=== PATIENT | female | born 1930 | race African-American/Black ===

== ENCOUNTER → 2017-02-02 | Outpatient (CLI) | payer MEDICARE, OTHER ==
[2016-04-26 10:44] VITALS: BP 126/81
[~2017-02-02] MED LIST: ARFO15VI NEB; ARIP2TAB8 PO; BECL8.7H NS; BUDE10.2 IH; CALC400T5 PO; CYCL-331 PO; HYDR-2758 PO; HYDR-2762 PO; LEVO500T59 PO; LORA10TA68 PO; MEGE400O PO; METO50TA10 PO; MIRT15TA3 PO; MONT10TA9 PO; PARO30TA45 PO; PARO40TA3 PO; PROM118S2 PO; SERT100T PO; XOPENEX0.63 MG/3 NEB
--- NOTE | 2017-02-02 11:09 | RAD ---
Examination: Ultrasound right lower extremity venous duplex History: History of right leg pain, swelling Comparison: None available Technique: Grayscale, color Doppler 2-D, spectral waveform analysis of the right lower extremity venous system were performed Findings: The visualized common femoral vein, superficial femoral vein , popliteal vein demonstrate normal compression and augmentation of flow. The visualized calf veins are patent. Impression: No evidence of deep venous thrombosis identified in the right lower extremity venous system.
== END | disposition home or self-care (01) ==
LOC: US 10:18
PROVIDERS: ATTEND Family Medicine
DX: M79.604 Pain in right leg (principal); I82.441 Acute embolism and thrombosis of right tibial vein; M79.89 Other specified soft tissue disorders
CPT/HCPCS: 93971

== ENCOUNTER → 2017-02-03 | Outpatient (CLI) | payer MEDICARE, OTHER ==
[2016-04-26 10:44] VITALS: BP 126/81
[~2017-02-03] MED LIST changes: +IOHEXOL 300 MG/ML 75 ML VIAL. IV ONE
--- NOTE | 2017-02-03 11:22 | RAD ---
Examination: CT angiogram of the chest. History: History of edema Comparison: 04/23/2016 Technique: Axial CT angiographic images were performed with IV contrast with coronal and sagittal 3-D MIP reformats are performed. PQRS Compliance Statement: One or more of the following individualized dose reduction techniques were utilized for this examination: 1. Automated exposure control 2. Adjustment of the mA and/or kV according to patient size 3. Use of iterative reconstruction technique Findings: The visualized thyroid gland grossly appears unremarkable. The central airways are patent. Mild aortic atherosclerosis identified. The ascending aorta measures 3.8 cm in transverse dimension and 3.8 cm in AP dimension. Mild cardiomegaly. No evidence of filling defect identified in the main pulmonary artery trunk and right and left main pulmonary arteries and the visualized lobar, segmental branches of the pulmonary arteries. Mild coronary artery calcifications. Faint patchy airspace opacities identified in the right upper lobe, left lingula and bibasal lungs. Mild bronchiectasis identified in the bibasal lungs. No evidence of pleural effusion or pneumothorax identified. The visualized liver, spleen grossly appears unremarkable. Impression: 1. No evidence of pulmonary embolism. 2. Mild bronchiectatic changes bibasal lungs with the bibasal, right upper lobe and left lingular airspace opacities likely atelectasis or infiltrates. 3. Mild cardiomegaly. Mild coronary artery calcifications.
== END | disposition home or self-care (01) ==
LOC: CT 09:31
PROVIDERS: ATTEND Family Medicine
DX: I25.10 Atherosclerotic heart disease of native coronary artery without angina pectoris (principal); J47.9 Bronchiectasis, uncomplicated; R91.8 Other nonspecific abnormal finding of lung field; R60.0 Localized edema; R79.9 Abnormal finding of blood chemistry, unspecified
CPT/HCPCS: 71275; Q9967

== ENCOUNTER → 2019-11-09 | Outpatient (CLI) | payer MEDICARE, OTHER ==
[2016-04-26 10:44] VITALS: BP 126/81
[~2019-11-09] MED LIST changes: +ARIP2TAB17 PO; -ARIP2TAB8 PO; +HYDR-2155 PO; -HYDR-2758 PO; -HYDR-2762 PO; +HYDR-2765 PO; -IOHEXOL 300 MG/ML 75 ML VIAL. IV ONE; -METO50TA10 PO; +METO50TA29 PO; +MONT10TA80 PO; -MONT10TA9 PO; -PROM118S2 PO; +PROM118S5 PO
[2019-11-09 16:04] LABS: BASO % 1 % (0-3); EOS # 0.2 x10^3/uL (0.0-0.7); EOS % 3 % (0-3); HEMOGLOBIN 13.5 g/dL (12.0-15.5); LYMPH # 1.9 x10^3/uL (1.0-4.8); LYMPH % 28 % (24-48); MEAN CORPUSCULAR HEMOGLOBIN 29 pg (25-35); MEAN CORPUSCULAR HGB CONC 31 g/dL (31-37); MEAN CORPUSCULAR VOLUME 92 fL (79-100); MONO # 0.6 x10^3/uL (0.0-1.1); MONO % 9 % (0-9); NEUT % 59 % (31-73); PLATELET COUNT 253 x10^3/uL (140-400); RED BLOOD COUNT 4.68 x10^6/uL (3.50-5.40); RED CELL DISTRIBUTION WIDTH 16.1 % (11.5-14.5); WHITE BLOOD COUNT 6.8 x10^3/uL (4.0-11.0)
[2019-11-09 16:26] LABS: CALCIUM 9.3 mg/dL (8.5-10.1); CREATININE 0.9 mg/dL (0.6-1.0); GFR 71.7
--- NOTE | 2019-11-09 19:22 | RAD ---
CHEST PA LATERAL History: CHF, edema, chest pain Comparison: 02/03/2017 CT of the chest, 04/22/2016 Portable Chest X-ray Exam. Findings: Frontal and lateral views of the chest were obtained. The cardiomediastinal silhouette is normal. Pulmonary vasculature is normal. The lungs are clear. Tortuosity of thoracic aorta noted. No pleural effusion or pneumothorax is seen. There is no acute bone abnormality. Old left rib fractures at the lower thorax are present. Left seventh rib fracture laterally is present with displacement. This is not seen on the prior exam. IMPRESSION: No infiltrate. Displaced left seventh rib fracture of indeterminate age. Other fractures are old in appearance. Electronically signed by: Jose Taveras MD (11/09/2019 7:19 PM) [id number]
== END | disposition home or self-care (01) ==
LOC: LAB 14:52
PROVIDERS: ATTEND Family Medicine
DX: S22.32XA Fracture of one rib, left side, initial encounter for closed fracture (principal); I50.21 Acute systolic (congestive) heart failure; N18.3 Chronic kidney disease, stage 3 (moderate); X58.XXXA Exposure to other specified factors, initial encounter; Y93.89 Activity, other specified; Y92.89 Other specified places as the place of occurrence of the external cause; Y99.8 Other external cause status
CPT/HCPCS: 36415; 71046; 80048; 82550; 83880; 85025

== ENCOUNTER 2021-09-22 15:11 | Inpatient (IN) | payer MEDICARE, OTHER ==
[~2021-09-22] VITALS: Ht 152.4 cm; Wt 55.9 kg
[~2021-09-22 15:11] MED LIST changes: -CYCL-331 PO; +CYCL10TA19 PO; +MIRT-7 PO; -MIRT15TA3 PO
[2021-09-22] MEDS ORDERED: IV NORMAL SALINE 1,000ML 1,000 ML IV ONE (16:00)
--- NOTE | 2021-09-22 16:22 | RAD ---
XR CHEST 1V History: Reason: SOB, cough / Spl. Instructions: / History: Comparison: November 09, 2019 Findings: Patchy mid and bibasilar opacities. No pleural effusion. No pneumothorax. Unchanged heart size. Chron ic left-sided rib fracture. Impression: 1. Mild patchy mid and bibasilar opacities, may represent atelectasis or pneumonia. Recommend follow -up to ensure resolution. Electronically signed by: Galileo Mejia DO (09/22/2021 4:20 PM) [facility]
--- NOTE | 2021-09-22 16:28 | PHYS DOC ---
Past History Past Medical History: Arthritis, CAD, COPD Additional Past Medical Histor: ENLARGED HEART (JOSE BUSH) Past Surgical History: Appendectomy, Hysterectomy (JOSE BUSH) Alcohol Use: Rarely Drug Use: None (JOSE BUSH) General Adult EDM: Chief Complaint: SHORTNESS OF BREATH HPI: HPI: Patient is a 89-year-old female with history of COPD, CAD and "enlarged heart" who presents with 2-day history of shortness of breath. Patient reports she became short of breath yesterday, but is more severe today. She also reports associated "medium" amount of sputum production when she coughs and nasal congestion. Patient denies fever, chills, sore throat, chest pain, palpitations. (JOSE BUSH) Review of Systems: Review of Systems: Constitutional: See HPI Eyes: Denies change in visual acuity or visual field deficits HENT: See HPI Respiratory: See HPI Cardiovascular: See HPI GI: Denies abdominal pain, nausea, vomiting, bloody stools or diarrhea : Denies dysuria or hematuria Musculoskeletal: Denies back pain or joint pain Integument: Denies rash or other skin lesions Neurologic: Denies headache, focal weakness or sensory changes (JOSE BUSH) Current Medications: Current Meds: Current Medications Medications (Trade) Dose Ordered Sig/Izabel Start Time Stop Time Status Last Admin Dose Admin Sodium Chloride 1,000 ml @ 1,000 mls/hr 1X ONCE 09/22/21 16:00 09/22/21 16:59 (JOSE BUSH) Allergies: Allergies: Allergies Coded Allergies Type Severity Reaction Last Updated Verified Penicillins Allergy Intermediate 09/22/21 Yes Sulfa (Sulfonamide Antibiotics) Allergy Intermediate 09/22/21 Yes (JOSE BUSH) Physical Exam: PE: Constitutional: Well developed, well nourished, no acute distress, non-toxic appearance. HENT: Normocephalic, atraumatic, bilateral external ears without deformity or discharge, oropharynx moist, no oral exudates, nose without deformity or discharge. Eyes: PERRLA, EOMI, conjunctiva normal, no discharge. Neck: Normal range of motion, no tenderness, supple, no stridor. Cardiovascular: Heart rate regular rhythm, no obvious murmur. Lungs & Thorax: Bilateral breath sounds clear to auscultation but diminished. Abdomen: Bowel sounds normal, soft, no tenderness, no masses, no pulsatile masses. Skin: Warm, dry, no erythema, no rash. (JOSE BUSH) Current Patient Data: Labs: Laboratory Tests Test 09/22/21 16:50 White Blood Count 9.6 x10^3/uL (4.0-11.0) Red Blood Count 4.50 x10^6/uL (3.50-5.40) Hemoglobin 12.9 g/dL (12.0-15.5) Hematocrit 40.1 % (36.0-47.0) Mean Corpuscular Volume 89 fL (79-100) Mean Corpuscular Hemoglobin 29 pg (25-35) Mean Corpuscular Hemoglobin Concent 32 g/dL (31-37) Red Cell Distribution Width 14.9 % (11.5-14.5) Platelet Count 170 x10^3/uL (140-400) Neutrophils (%) (Auto) 71 % (31-73) Lymphocytes (%) (Auto) 16 % (24-48) Monocytes (%) (Auto) 11 % (0-9) Eosinophils (%) (Auto) 3 % (0-3) Basophils (%) (Auto) 1 % (0-3) Neutrophils # (Auto) 6.8 x10^3uL (1.8-7.7) Lymphocytes # (Auto) 1.5 x10^3/uL (1.0-4.8) Monocytes # (Auto) 1.0 x10^3/uL (0.0-1.1) Eosinophils # (Auto) 0.2 x10^3/uL (0.0-0.7) Basophils # (Auto) 0.0 x10^3/uL (0.0-0.2) Sodium Level 139 mmol/L (136-145) Potassium Level 4.2 mmol/L (3.5-5.1) Chloride Level 100 mmol/L (98-107) Carbon Dioxide Level 29 mmol/L (21-32) Anion Gap 10 (6-14) Blood Urea Nitrogen 10 mg/dL (7-20) Creatinine 1.0 mg/dL (0.6-1.0) Estimated GFR (Cockcroft-Gault) 63.2 BUN/Creatinine Ratio 10 (6-20) Glucose Level 83 mg/dL (70-99) Calcium Level 9.6 mg/dL (8.5-10.1) Total Bilirubin 0.8 mg/dL (0.2-1.0) Aspartate Amino Transf (AST/SGOT) 50 U/L (15-37) Alanine Aminotransferase (ALT/SGPT) 30 U/L (14-59) Alkaline Phosphatase 64 U/L (46-116) Troponin I High Sensitivity 6 ng/L (4-50) VO-Yxb-H-Type Natriuretic Peptide 134 pg/mL (0-449) Total Protein 9.1 g/dL (6.4-8.2) Albumin 3.8 g/dL (3.4-5.0) Albumin/Globulin Ratio 0.7 (1.0-1.7) Influenza Type A (Rapid) Negative (NEGATIVE) Influenza Type B (Rapid) Negative (NEGATIVE) Vital Signs: Vital Signs Date Time Temp Pulse Resp B/P (MAP) Pulse Ox O2 Delivery O2 Flow Rate FiO2 09/22/21 15:32 97 28 100 Nasal Cannula 2.0 09/22/21 15:19 97.9 127/81 (96) (JSOE BUSH) EKG: EKG: EKG Interpreted by Dr. Mccrary at 1640: Regular rate and rhythm 83 bpm with no ectopic beats. QT 386 ms/QTc 483 ms. No STEMI. (JOSE BUSH) Radiology/Procedures: Radiology/Procedures: PROCEDURE: PORTABLE CHEST 1V XR CHEST 1V History: Reason: SOB, cough / Spl. Instructions: / History: Comparison: November 09, 2019 Findings: Patchy mid and bibasilar opacities. No pleural effusion. No pneumothorax. Unchanged heart size. Chronic left-sided rib fracture. Impression: 1. Mild patchy mid and bibasilar opacities, may represent atelectasis or pneumonia. Recommend follow-up to ensure resolution. Electronically signed by: Galileo Mejia DO (09/22/2021 4:20 PM) [facility] ([facility]) Heart Score: C/O Chest Pain: No (JOSE BUSH) Course & Med Decision Making: Course & Med Decision Making Pertinent Labs and Imaging studies reviewed. (See chart for details) Patient is an 89-year-old female with history of COPD, coronary artery disease a nd enlarged heart who presents with shortness of breath onset yesterday. Patient states is gotten worse today. Work-up today will include labs, chest x- ray, EKG, urinalysis, swabs for influenza a & B as well as COVID-19. Work-up today is largely unremarkable, however patient is still under investigation for COVID-19 infection. Patient gladly accepted by Dr. Sellers for admission due to acute hypoxia with history of COPD and evidence of atelectasis versus pneumonia on chest x-ray. (JOSE BUSH) Dragon Disclaimer: Dragon Disclaimer: This electronic medical record was generated, in whole or in part, using a voice recognition dictation system. (JOSE BUSH) Attending Co-Sign The patient was seen and interviewed as well as examined at the bedside. The chart was reviewed. The case was discussed. Agree with the plan of care. (MARLIN CARMICHAEL DO) Departure Departure: Impression: Primary Impression: COPD with hypoxia Additional Impression: Respiratory failure with hypoxia Qualified Codes: J96.01 - Acute respiratory failure with hypoxia Disposition: ADMITTED INPATIENT Admitting Physician: Rodri Mina (JSOE BUSH) Condition: GUARDED Referrals: RODRI MINA MD (PCP) JOSE BUSH Sep 22, 2021 16:28 MARLIN CARMICHAEL DO Sep 23, 2021 14:41
--- NOTE | 2021-09-22 16:53 | EKG ---
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
[2021-09-22 17:32] LABS: BASO % 1 % (0-3); EOS # 0.2 x10^3/uL (0.0-0.7); EOS % 3 % (0-3); HEMATOCRIT 40.1 % (36.0-47.0); HEMOGLOBIN 12.9 g/dL (12.0-15.5); LYMPH # 1.5 x10^3/uL (1.0-4.8); LYMPH % 16 % (24-48); MEAN CORPUSCULAR HEMOGLOBIN 29 pg (25-35); MEAN CORPUSCULAR HGB CONC 32 g/dL (31-37); MEAN CORPUSCULAR VOLUME 89 fL (79-100); MONO % 11 % (0-9); NEUT # 6.8 x10^3uL (1.8-7.7); NEUT % 71 % (31-73); PLATELET COUNT 170 x10^3/uL (140-400); RED CELL DISTRIBUTION WIDTH 14.9 % (11.5-14.5); WHITE BLOOD COUNT 9.6 x10^3/uL (4.0-11.0)
[2021-09-22 17:38] LABS: CALCIUM 9.6 mg/dL (8.5-10.1); GFR 63.2; POTASSIUM 4.2 mmol/L (3.5-5.1)
[2021-09-22 17:44] LABS: ALBUMIN 3.8 g/dL (3.4-5.0); ALBUMIN/GLOBULIN RATIO 0.7 (1.0-1.7); TOTAL BILIRUBIN 0.8 mg/dL (0.2-1.0); TOTAL PROTEIN 9.1 g/dL (6.4-8.2)
[2021-09-22 18:06] LABS: INFLUENZA A PATIENT NEGATIVE (NEGATIVE); INFLUENZA B PATIENT NEGATIVE (NEGATIVE)
[2021-09-22 18:35] LABS: BACTERIA,URINE MANY /HPF (0-FEW); BILIRUBIN,URINE NEG (NEG); CLARITY,URINE HAZY; COLOR,URINE YELLOW; GLUCOSE,URINE NEG (NEG); NITRITE,URINE POS (NEG); RBC,URINE 0 /HPF (0-2); SQUAMOUS EPITHELIAL CELL,UR MOD /LPF; UROBILINOGEN,URINE 0.2 mg/dL (0.2 mg/dL)
[2021-09-22 23:15] VITALS: BP 119/75
[2021-09-22] MEDS ORDERED: HYDROcodone/APAP 7.5/325MG 1 TAB TABLET PO PRN (23:15)
[2021-09-22] MEDS ORDERED: CYCLOBENZAPRINE 10 MG TABLET. PO PRN (23:15)
[2021-09-22] MEDS ORDERED: CALCIUM CARBONATE 500 MG TAB.CHEW PO PRN (23:30)
[2021-09-22] MEDS ORDERED: ALBUTEROL SULFATE 2.5 MG/3 ML NEBU. NEB PRN (23:30)
[2021-09-23 06:06] VITALS: BP 100/63
[2021-09-23] MEDS ORDERED: ALBUTEROL SULFATE 2.5 MG/3 ML NEBU. NEB SCH (08:00)
[2021-09-23] MEDS ORDERED: levoFLOXacin 500 MG TABLET PO SCH (09:00)
[2021-09-23] MEDS: METOPROLOL SUCC 24HR ER 50 MG TAB.ER.24H. PO SCH (09:00)
[2021-09-23] MEDS: FLUTICASONE 50MCG/NASAL SPRAY 16GM BOTTLE. NS SCH (09:00)
[2021-09-23] MEDS: ARIPiprazole 2 MG TABLET PO SCH (09:00)
[2021-09-23] MEDS: BUDESONIDE 0.5 MG/2 ML NEBU NEB SCH ×2 (09:04→20:37)
[2021-09-23] MEDS: MONTELUKAST 10 MG TABLET. PO SCH (09:26)
[2021-09-23] MEDS: PARoxetine 20 MG TABLET PO SCH (09:27)
[2021-09-23 11:39] VITALS: BP 101/68
--- NOTE | 2021-09-23 12:30 | NUR ---
PT MORNING DOSE OF METOPROLOL HELD D/T PT BP BEING LOW.
[2021-09-23] MEDS: IPRATRPIUM/ALBUTEROL 0.5/2.5MG 3 ML NEBU. NEB SCH ×3 (12:38→20:37)
[2021-09-23] MEDS: ENOXAPARIN 30 MG/0.3 ML SYRINGE. SQ SCH (12:38)
[2021-09-23] MEDS: methylPREDNISolone SOD SUCC PF 40 MG/ML VIAL. IV SCH ×2 (13:07→21:47)
--- NOTE | 2021-09-23 13:12 | HP ---
DATE OF SERVICE: 09/23/2021 ADMIT DATE: 09/22/2021 HISTORY OF PRESENT ILLNESS: This is an 89-year-old female for last 2-3 days has become increasingly short of breath and wheezing. The patient notes that she became increasingly more severe and her oxygen saturation dropped down in the 70 percentile range. The patient otherwise denied chest pain, abdominal pain, nausea, vomiting and so forth. However, the patient was admitted because of acute exacerbation of her respiratory difficulties along with possible pneumonic process precipitating the whole series of events. PAST MEDICAL HISTORY: That of tonsillectomy, adenoidectomy, CHF, CAD, COPD, pulmonary fibrosis, reproductive disorders, hysterectomy, urinary tract infections, incontinence, arthritis, osteoporosis, thrombocytopenia, lymphocytosis and the patient has immunization to pneumococcal tetanus and COVID. ALLERGIES: PENICILLIN AND SULFUR. SOCIAL HISTORY: Denies smoking, alcohol or drug use and is a DNR. REVIEW OF SYSTEMS: The patient denies any headaches, visual changes, blurred vision, double vision. Denies any melena, hematochezia, hematemesis and neurologically, the patient seems to be resting fairly comfortable overall. PHYSICAL EXAMINATION: VITAL SIGNS: The patient's blood pressure has gone down to 91/56, up to 101/60, respiratory rate 16, pulse 105. She is afebrile presently. She was on 4 liters per nasal cannula when she came in. HEENT: The patient's head was atraumatic, normocephalic. Eyes: PERRLA without jaundice. The mouth and throat were normal. NECK: Supple. No JVD or thyromegaly. LUNGS: Diminished throughout basically, but show scattered inspiratory and expiratory wheezes throughout all five lobes. CARDIOVASCULAR: Regular sinus rhythm. ABDOMEN: Soft, nontender. No rebound or guarding. Positive bowel sounds. No hepatosplenomegaly. EXTREMITIES: No clubbing, cyanosis, nor edema. NEUROLOGIC: The patient is alert and oriented x 3. LABORATORY DATA: The patient's labs show white count 9.6, hemoglobin 12 and hematocrit 40. Sodium and potassium 139 and 4.2, BUN and creatinine of 10 and 1. GFR of 63, otherwise unremarkable except as noted. Chest x-ray did show a possibility of a pneumonic process and will be monitored accordingly. She has been placed on respiratory therapy, steroids and some IV antibiotics such as ceftriaxone and Zithromax and breathing treatments. IMPRESSION: Pneumonia of unspecified etiology, community acquired; acute respiratory failure. Further evaluation on her as indicated per those results. NILSA/BETO DR: Abdelrahman TID: [id number]
--- NOTE | 2021-09-23 14:21 | NUR ---
Spoke with Estefani the patient's daughter and update given. Patient is up with has SOA with ambulation. Patient is on 3 L of oxygen.
[2021-09-23 15:47] VITALS: BP 102/64
[2021-09-23 19:00] VITALS: BP 111/71
[2021-09-23] MEDS: LACTOBACILLUS RHAMNOSUS GG 1 CAPSULE. PO SCH (21:47)
[2021-09-23] MEDS: MIRTAZAPINE 15 MG TABLET PO SCH (21:47)
[2021-09-23 23:00] VITALS: BP 110/70
--- NOTE | 2021-09-24 01:22 | NUR ---
NURSING NOTE PT WAS IN BED UPON ASSESSMENT AND MEDICATION ADMINISTRATION. PT A&O X2-3, FORGETFUL. PT CALM AND COOPERATIVE WITH CARES, TAKES MEDS WHOLE. PT REQUEST FOR BOX LUNCH, SET UP HELP ONLY. PT CONTINUES TO BE SHORT OF AIR ON EXERTION AND IS CURRENTLY ON 2L OF OXYGEN AT THIS TIME WHICH SHE STATES SHE DOES NOT WEAR AT HOME. BILATERAL POSTERIOR LUNG BASE CRACKLES NOTED, PT HAS RT TREATMENTS ORDERED. PT HAS BEEN CONTINENT WITH STAND BY ASSIST TO RESTROOM WITH WALKER/GAIT BELT. PT DAUGHTER STEPHENIE CALLED AND UPDATED. NO BEHAVIORS NOTED. EDEN RAMIREZ.
[2021-09-24] MEDS: methylPREDNISolone SOD SUCC PF 40 MG/ML VIAL. IV SCH ×2 (05:37→14:35)
[2021-09-24] MEDS: IPRATRPIUM/ALBUTEROL 0.5/2.5MG 3 ML NEBU. NEB SCH ×4 (05:38→21:53)
[2021-09-24 06:05] VITALS: BP 108/65
[2021-09-24] MEDS: BUDESONIDE 0.5 MG/2 ML NEBU NEB SCH ×3 (08:51→21:52)
[2021-09-24] MEDS: FLUTICASONE 50MCG/NASAL SPRAY 16GM BOTTLE. NS SCH (09:00)
[2021-09-24] MEDS: MONTELUKAST 10 MG TABLET. PO SCH (09:11)
[2021-09-24] MEDS: LACTOBACILLUS RHAMNOSUS GG 1 CAPSULE. PO SCH ×2 (09:11→21:55)
[2021-09-24] MEDS: ARIPiprazole 2 MG TABLET PO SCH (09:11)
[2021-09-24] MEDS: PARoxetine 20 MG TABLET PO SCH (09:11)
[2021-09-24] MEDS: METOPROLOL SUCC 24HR ER 50 MG TAB.ER.24H. PO SCH (09:12)
[2021-09-24 11:25] VITALS: BP 111/63
[2021-09-24] MEDS: ENOXAPARIN 30 MG/0.3 ML SYRINGE. SQ SCH (12:38)
--- NOTE | 2021-09-24 12:51 | RAD ---
NUCLEAR MEDICINE VENTILATION PERFUSION SCAN History: Shortness of air, elevated d-dimer. Comparison: AP chest, 2 days ago Technique: Patient initially ventilated with 20 mCi of xenon-133 gas. Anterior and posterior imaging of the lungs during initial breath-hold, equilibrium and, washout phase images is performed. Perfusi on portion performed after intravenous administration of 4.5 mCi Technetium 99m MAA. Multiple project ion planar images of the lungs were obtained. Findings: The initial breath-hold ventilation images are homogeneous. There is no retention of tracer on the wa shout phase images. Perfusion images demonstrate no segmental perfusion defects. The distribution is mildly heterogeneous . IMPRESSION: Low probability for pulmonary embolus. Electronically signed by: Gunner Whiting MD (09/24/2021 12:49 PM) [id number]
[2021-09-24 15:04] VITALS: BP 119/75
--- NOTE | 2021-09-24 16:23 | NUR ---
Shift Nurse Note Patient is resting comfortably in bed. Patient is A&O x3, she is often forgetful but easily reoriented. Pt is currently on 2 L of oxygen, though does not wear oxygen at home. Posterior lung base crackles noted and occasional non productive cough.
[2021-09-24 19:10] VITALS: BP 118/78
[2021-09-24] MEDS: MIRTAZAPINE 15 MG TABLET PO SCH (21:55)
--- NOTE | 2021-09-25 04:32 | PN ---
DATE: 09/24/2021 SUBJECTIVE: An 89-year-old female in with pneumonia and exacerbation of her COPD secondary to an infectious process. The patient is resting fairly comfortably. The lungs were clear atraumatically and she made good improvement with the use of steroids and antibiotic therapy. The patient otherwise seems to be making good progress and will continue on present drug regimen, may need to decrease her prednisone. OBJECTIVE: GENERAL: Otherwise, doing well. VITAL SIGNS: Blood pressure 120/70, respiratory rate 20, pulse 90, afebrile, 2 liters at 95. HEENT: The patient's head was atraumatic, normocephalic. Eyes: PERRLA without jaundice. Mouth and throat were normal. The neck was supple without JVD, carotid bruits or thyromegaly. LUNGS: Shows some mild wheezing, but much improved from yesterday. CARDIOVASCULAR: Regular sinus rhythm. ABDOMEN: Soft, nontender. No rebound or guarding. IMPRESSION: Therefore, pneumonia of unspecified etiology, community acquired; exacerbation of chronic obstructive pulmonary disease secondary to pneumonic process; urinary tract infection. PLAN: Continue on IV antibiotic therapy and make further evaluation on her as other results are returned. NILSA/CHARLEEN/ESTEFANY DR: NILSA/isabel TID: [id number]
[2021-09-25] MEDS: IPRATRPIUM/ALBUTEROL 0.5/2.5MG 3 ML NEBU. NEB SCH ×2 (05:30→13:05)
[2021-09-25 05:57] VITALS: BP 123/76
--- NOTE | 2021-09-25 07:16 | NUR ---
Pt dressed up and independently accomplishing ADLs at start of shift. Later, pt expressed she was tired and would be heading to bed soon. About 0100, pt was still up and watching television. At 0400, pt still up and moving about. Pt always expresses, " I'll go to bed soon." [email or web address]
[2021-09-25 08:30] VITALS: BP 123/76
[2021-09-25] MEDS: METOPROLOL SUCC 24HR ER 50 MG TAB.ER.24H. PO SCH (08:30)
[2021-09-25] MEDS: LACTOBACILLUS RHAMNOSUS GG 1 CAPSULE. PO SCH (08:30)
[2021-09-25] MEDS: MONTELUKAST 10 MG TABLET. PO SCH (08:30)
[2021-09-25] MEDS: ARIPiprazole 2 MG TABLET PO SCH (08:31)
[2021-09-25] MEDS: FLUTICASONE 50MCG/NASAL SPRAY 16GM BOTTLE. NS SCH (08:31)
[2021-09-25] MEDS: PARoxetine 20 MG TABLET PO SCH (08:31)
[2021-09-25] MEDS ORDERED: methylPREDNISolone SOD SUCC PF 40 MG/ML VIAL. IV SCH (09:00)
[2021-09-25] MEDS ORDERED: METH4TAB2 PO (12:52)
[2021-09-25] MEDS ORDERED: ALBU2.5V8 NEB (12:52)
[2021-09-25] MEDS ORDERED: IPRA3AMP29 NEB (12:52)
[2021-09-25] MEDS ORDERED: LACT1CAP19 PO (12:52)
[2021-09-25] MEDS ORDERED: LEVO250T8 PO (12:52)
--- NOTE | 2021-09-25 12:54 | DISCH ---
HOME HEALTH DISCHARGE/MEDS DISCHARGE INFORMATION: Discharge Date: Sep 25, 2021 Final Diagnosis: Problems Medical Problems: (1) COPD with hypoxia Status: Acute (2) Respiratory failure with hypoxia Status: Acute Condition on Discharge: Stable CODE STATUS: Code Status: DNR/DNI HOME HEALTH: Face to Face: I certify this patient is under my care and that I, or a nurse practitioner or physician's cashier assistant working with me, had a face to face encounter that meets the physician face to face encounter requirements with this patient on September 25, 2021. Medical Condition(s): COPD Fpc For: Assess Cardiopulm Status, Assess & Educate Safety, Assess/Skilled Observatio, Medication Management Physical Therapy For: Evalulation/Treatment Homebound Status Met By: Fatigue w/ amb. POST DISCHARGE ORDERS: Activity Instructions for Disc: Activity as tolerated Weight Bearing Status after Di: No restrictions DIET AFTER DISCHARGE: Cardiac TREATMENT/EQUIPMENT ORDERS: Discharge Respiratory Equipmen: Oxygen CERTIFICATION STATEMENT: Certification Statement: Based on the above finding, I certify that this patient is confined to the home and needs intermittent nursing home care, physical therapy and/or speech therapy, or continues to need occupational therapy.~ This patient is under my care, and I have initiated the establishment of the plan of care.~ This patient will be followed by myself or a community physician who will periodically review the plan of care. DISCHARGE MEDICATIONS: Home Meds Active Scripts Levofloxacin (LEVAQUIN) 500 Mg Tablet, 250 MG PO DAILY, #7 TAB Prov:RODRI MINA MD 04/26/16 Reported Medications Mirtazapine (MIRTAZAPINE) 15 Mg Tablet, 1 TAB PO HS LAST DOSE GIVEN: DATE: YESTERDAY TIME: AT BEDTIME NEXT DOSE DUE: DATE: TODAY TIME: AT BEDTIME 04/23/16 Aripiprazole (Aripiprazole) 2 Mg Tablet, 1 TAB PO DAILY LAST DOSE GIVEN: DATE: TODAY TIME: AM NEXT DOSE DUE: DATE: TOMORROW TIME: AM 04/23/16 Paroxetine Hcl (PAROXETINE HCL) 40 Mg Tablet, 1 TAB PO DAILY08 LAST DOSE GIVEN: DATE: TODAY TIME: AM NEXT DOSE DUE: DATE: TOMORROW TIME: AM 04/23/16 Hydrocodone Bit/Acetaminophen (HYDROCODONE-APAP 7.5-325 ) 1 Each Tablet, 1 TAB PO TID PRN for PAIN, TAB 0 Refills LAST DOSE GIVEN: DATE: TIME: NEXT DOSE DUE: DATE: TODAY TIME: WHEN NEEDED 07/29/15 Montelukast Sodium (MONTELUKAST SODIUM TABLET ) 10 Mg Tablet, 1 TAB PO DAILY for asthma for 0 Days, TAB 5 Refills LAST DOSE GIVEN: DATE: TODAY TIME: AM NEXT DOSE DUE: DATE: TOMORROW TIME: AM 07/29/15 Loratadine (CLARITIN) 10 Mg Tablet, 1 TAB PO DAILY for allergies for 0 Days, TAB 5 Refills LAST DOSE GIVEN: DATE: TODAY TIME: AM NEXT DOSE DUE: DATE: TOMORROW TIME: AM 07/29/15 Cyclobenzaprine Hcl (CYCLOBENZAPRINE HCL) 10 Mg Tablet, 1 TAB PO Q8HRS PRN for MUSCLE PAIN for 0 Days, TAB LAST DOSE GIVEN: DATE: TIME: NEXT DOSE DUE: DATE: TODAY TIME: WHEN NEEDED 07/29/15 Budesonide/Formoterol Fumarate (SYMBICORT 160-4.5 MCG INHALER) 10.2 Gm Hfa.aer.ad, 2 PUFF IH BID for breathing for 0 Days, GM 3 Refills LAST DOSE GIVEN: DATE: TODAY TIME: AM NEXT DOSE DUE: DATE: TODAY TIME: PM 07/29/15 Beclomethasone Dipropionate (QNASL) 8.7 Gm Hfa.aer.ad, 2 SPR NS DAILY PRN for CONGESTION for 0 Days, GM 3 Refills LAST DOSE GIVEN: DATE: TIME: NEXT DOSE DUE: DATE: TODAY TIME: WHEN NEEDED 07/29/15 Calcium Carbonate (TUMS ULTRA) 400 Mg Tab.chew, 400 MG PO TID PRN for indigestion, TAB.CHEW LAST DOSE GIVEN: DATE: TIME: NEXT DOSE DUE: DATE: TODAY TIME: WHEN NEEDED 07/29/15 Metoprolol Succinate (METOPROLOL SUCCINATE ( XL )) 50 Mg Tab.er.24h, 1 TAB PO DAILY for htn for 0 Days, TAB 5 Refills LAST DOSE GIVEN: DATE: TODAY TIME: AM NEXT DOSE DUE: DATE: TOMORROW TIME: AM 07/29/15 RODRI MINA MD Sep 25, 2021 12:54
[2021-09-25] MEDS: ENOXAPARIN 30 MG/0.3 ML SYRINGE. SQ SCH (13:05)
--- NOTE | 2021-09-25 14:44 | NUR ---
nursing note Pt discharged at 1421 via wheelchair accompanied by family member. pt given written and verbal instructions for discharge including medications , home oxygen, and follow up care. This nurse called the home oxygen dilivery company to inform them of pts discharge.
--- NOTE | 2021-09-28 18:10 | DS ---
HOSPITAL COURSE SUMMARY: An 89-year-old female with pneumonia and exacerbation of chronic obstructive pulmonary disease secondary to infectious disease. The patient came in. She was having trouble breathing. However, the patient was placed on IV antibiotic therapy, aggressive pulmonary toilet and made excellent progress during the rest of her hospitalization. The patient was placed on steroids. White count was slightly elevated. Potassium slightly low at 3.4. Albumin 2.7. The patient said she felt much better. She was COVID negative and the patient made excellent progress during the rest of her hospitalization. She was discharged home. IMPRESSION: Pneumonia of unspecified etiology, community acquired; acute exacerbation of chronic obstructive pulmonary disease secondary to respiratory disease, severe protein malnutrition, generalized deconditioning. The patient will be discharged. See MRAD. Make further evaluation on her as an outpatient with home health and proceed. GLADYS DR: Abdelrahman TID: [id number]
== END 2021-09-25 14:47 | disposition home health service (06) | DRG 177 ==
LOC: ER 15:11 → ER HOLD 20:29 → 1 SOUTH 22:18
PROVIDERS: ADMIT Family Medicine; ATTEND Family Medicine
DX: J15.6 Pneumonia due to other Gram-negative bacteria (principal); J96.01 Acute respiratory failure with hypoxia; E43 Unspecified severe protein-calorie malnutrition; J44.0 Chronic obstructive pulmonary disease with (acute) lower respiratory infection; J44.1 Chronic obstructive pulmonary disease with (acute) exacerbation; N39.0 Urinary tract infection, site not specified; J15.9 Unspecified bacterial pneumonia; I25.10 Atherosclerotic heart disease of native coronary artery without angina pectoris; I50.9 Heart failure, unspecified; J84.10 Pulmonary fibrosis, unspecified; M81.0 Age-related osteoporosis without current pathological fracture; Z90.49 Acquired absence of other specified parts of digestive tract; Z90.710 Acquired absence of both cervix and uterus; M19.90 Unspecified osteoarthritis, unspecified site; Z88.0 Allergy status to penicillin; Z88.2 Allergy status to sulfonamides; Z20.822 Contact with and (suspected) exposure to COVID-19; Z68.24 Body mass index [BMI] 24.0-24.9, adult; Z66 Do not resuscitate
CPT/HCPCS: 36415; 71045; 78582; 80053; 81001; 83880; 84484; 85025; 85379; 87077; 87086; 87186; 87804; 93005; 94640; 96360; A9540; A9558; J0696; J1650; J2920; U0003; 97530; 99285-25; J7030; J7613

== ENCOUNTER 2021-09-26 20:00 | Inpatient (IN) | payer MEDICARE, OTHER ==
[~2021-09-26] VITALS: Ht 152.4 cm; Wt 52.6 kg
[~2021-09-26 20:00] MED LIST changes: +ALBU2.5V8 NEB; +IPRA3AMP29 NEB; +LACT1CAP19 PO; +LEVO250T8 PO; +METH4TAB2 PO
--- NOTE | 2021-09-26 20:08 | PHYS DOC ---
Past History Past Medical History: Arthritis, CAD, COPD Additional Past Medical Histor: ENLARGED HEART Past Surgical History: Appendectomy, Hysterectomy Alcohol Use: Rarely Drug Use: None Adult General HPI HPI Patient is an 89-year-old female with a past medical history significant for COPD, restrictive lung disease and CAD who presents to the emergency department with a chief complaint of shortness of breath. Patient was discharged from [facility] yesterday after being in for respiratory distress and pneumonia of unknown etiology. States that she uses about 2 to 3 L of oxygen at home, and st stef[facility] feeling short of breath, needing more oxygen a couple hours before coming to the ED. Denies headache, changes in vision, chest pain, wheezing, abdominal pain, nausea, vomiting, diarrhea. Denies any numbness/weakness/tingling. Review of Systems Review of Systems Review of systems otherwise unremarkable except noted in HPI Allergies Allergies Allergies Coded Allergies Type Severity Reaction Last Updated Verified Penicillins Allergy Intermediate 09/22/21 Yes Sulfa (Sulfonamide Antibiotics) Allergy Intermediate 09/22/21 Yes Physical Exam Physical Exam Constitutional: Well developed, well nourished, no acute distress, non-toxic appearance. [] HENT: Normocephalic, atraumatic, bilateral external ears normal, oropharynx moist, no oral exudates, nose normal. [] Eyes: conjunctiva normal, no discharge. [] Neck: Normal range of motion, no tenderness, supple, no stridor. [] Cardiovascular:Heart rate regular rhythm, no murmur [] Lungs & Thorax: Mild bilateral rhonchi, tachypnea, hypoxia Abdomen: Bowel sounds normal, soft, no tenderness, no masses, no pulsatile masses. [] Skin: Warm, dry, no erythema, no rash. [] Back: No tenderness, no CVA tenderness. [] Extremities: No tenderness, no cyanosis, no clubbing, ROM intact, no edema. [] Neurologic: Alert and oriented X 3, normal motor function, normal sensory function, no focal deficits noted. [] Psychologic: Affect normal, judgement normal, mood normal. [] EKG EKG [] Radiology/Procedures Radiology/Procedures []R CHEST 1V CLINICAL INDICATIONS: Shortness of breath COMPARISON: September 22, 2001. Findings: Bilateral lung infiltrates are seen. There is unchanged on the right side. There is an increase on left side including the left upper lobe and left midlung zone. Left lung base infiltrate is unchanged. No pleural effusion or pneumothorax is evident. Heart size is enlarged but stable. Mediastinum and pulmonary vasculature and both jose are stable. Old healed midshaft fracture of the right humerus is seen. IMPRESSION: Bilateral lung infiltrates. Worse on the left side. Electronically signed by: Souleymane Brizuela MD (09/26/2021 9:34 PM) [id number] Heart Score C/O Chest Pain: No Risk Factors: Risk Factors: DM, Current or recent (<one month) smoker, HTN, HLP, family history of CAD, obesity. Risk Scores: Risk Factors: DM, Current or recent (<one month) smoker, HTN, HLP, family history of CAD, obesity. Course & Med Decision Making Course & Med Decision Making Patient is an 89-year-old female with COPD who presents for a chief complaint of shortness of breath after being discharged from the hospital yesterday for the same issue Vital signs notable for fever and tachycardia. Physical exam noted above. Placed on the monitor with IV access established. Started on IV fluid. Placed on 5 L nasal cannula. Given DuoNeb and dexamethasone EKG with a rate of 103, QRS of 72, QTc 44, no STEMI. Troponin slightly elevated. Given aspirin. Started on antibiotics for pneumonia. Rest the patient's care handed off to day team for continued evaluation, treatment and disposition [] Dragon Disclaimer Dragon Disclaimer This electronic medical record was generated, in whole or in part, using a voice recognition dictation system. Departure Departure: Impression: Primary Impression: COPD exacerbation Additional Impressions: Pneumonia Hypoxia Condition: STABLE Referrals: RODRI MINA MD (PCP) Problem Qualifiers NAKIA SAHA MD Sep 26, 2021 20:08
[2021-09-26] MEDS ORDERED: ACETAMINOPHEN 500 MG TABLET PO ONE (21:15)
[2021-09-26] MEDS ORDERED: DEXAMETHASONE 4 MG TABLET PO ONE (21:30)
[2021-09-26] MEDS ORDERED: IPRATRPIUM/ALBUTEROL 0.5/2.5MG 3 ML NEBU. NEB ONE (21:30)
[2021-09-26 21:31] LABS: CALCIUM 8.6 mg/dL (8.5-10.1); CREATININE 0.9 mg/dL (0.6-1.0); GFR 71.3; POTASSIUM 4.3 mmol/L (3.5-5.1)
--- NOTE | 2021-09-26 21:36 | RAD ---
XR CHEST 1V CLINICAL INDICATIONS: Shortness of breath COMPARISON: September 22, 2001. Findings: Bilateral lung infiltrates are seen. There is unchanged on the right side. There is an incr ease on left side including the left upper lobe and left midlung zone. Left lung base infiltrate is u nchanged. No pleural effusion or pneumothorax is evident. Heart size is enlarged but stable. Mediasti num and pulmonary vasculature and both jose are stable. Old healed midshaft fracture of the right hum erus is seen. IMPRESSION: Bilateral lung infiltrates. Worse on the left side. Electronically signed by: Souleymane Brizuela MD (09/26/2021 9:34 PM) [id number]
[2021-09-26 21:37] LABS: ALBUMIN 2.7 g/dL (3.4-5.0); ALBUMIN/GLOBULIN RATIO 0.6 (1.0-1.7); MAGNESIUM 2.7 mg/dL (1.8-2.4); TOTAL BILIRUBIN 0.5 mg/dL (0.2-1.0); TOTAL PROTEIN 7.6 g/dL (6.4-8.2)
[2021-09-26] MEDS ORDERED: ASPIRIN CHEWABLE 81 MG TABLET. PO ONE (21:45)
[2021-09-26 22:00] LABS: BASO # 0.1 x10^3/uL (0.0-0.2); BASO % 0 % (0-3); EOS % 0 % (0-3); HEMATOCRIT 36.4 % (36.0-47.0); HEMOGLOBIN 11.6 g/dL (12.0-15.5); LYMPH # 1.7 x10^3/uL (1.0-4.8); LYMPH % 11 % (24-48); MEAN CORPUSCULAR HEMOGLOBIN 28 pg (25-35); MEAN CORPUSCULAR HGB CONC 32 g/dL (31-37); MEAN CORPUSCULAR VOLUME 89 fL (79-100); MONO # 1.4 x10^3/uL (0.0-1.1); MONO % 9 % (0-9); NEUT # 12.6 x10^3uL (1.8-7.7); NEUT % 80 % (31-73); PLATELET COUNT 238 x10^3/uL (140-400); WHITE BLOOD COUNT 15.7 x10^3/uL (4.0-11.0)
[2021-09-26 22:07] LABS: % LYMPHS 15 % (24-48); % MONOS 8 % (0-10); % SEGS 77 % (35-66)
[2021-09-26 22:10] LABS: PLT ESTIMATE ADEQUATE (ADEQUATE)
[2021-09-26] MEDS ORDERED: IOHEXOL 350 MG/ML 100 ML VIAL. IV ONE (22:45)
--- NOTE | 2021-09-27 00:31 | EKG ---
[address] [address] Test Date: 2021-09-26 Test Time: 20:18:04 Pat Name: CARMEN KENNEDY Department: Room: Gender: F Sleep Tech: PATRICIA : [id number] Requested By: NAKIA SAHA Order Number: [id number] Reading MD: Brandon Tate Measurements Intervals [place] Rate: 103 P: 28 CA: 134 QRS: -22 QRSD: 72 T: -9 QT: 368 QTc: 484 Interpretive Statements SINUS TACHYCARDIA LEFTWARD AXIS NON SPECIFIC T WAVE CHANGES Electronically Signed On 10-03-2021 17:47:42 [employer] by Brandon Tate
--- NOTE | 2021-09-27 01:13 | RAD ---
CTA CHEST History: Shortness of breath. Technique: CT of the chest was performed with intravenous contrast. PE protocol. Maximum intensity pr ojection coronal and sagittal reconstructions were performed. Exposure: One or more of the following individualized dose reduction techniques were utilized for thi s examination: 1. Automated exposure control 2. Adjustment of the mA and/or kV according to patient size 3. Use of iterative reconstruction technique. Comparison: None Findings: Chest: No pulmonary embolus. No aortic aneurysm or dissection. Mild atheromatous plaque within the ao rta. Artifact within the descending thoracic aorta. No pathologic lymphadenopathy. Prior granulomatous dis ease within the chest. Coronary artery calcifications. Small hiatal hernia. Severe multifocal ground glass opacities with septal thickening most prominent within the lung bases. Bilateral bronchiectasis. No pleural effusion. No pneumothorax. Upper abdomen: The imaged upper abdomen is unremarkable. Bones: No pathologic osseous lesions. Impression: 1. Severe multifocal region of ground glass opacities and septal thickening, concerning for pneumoni a including viral pneumonia. Recommend follow-up to ensure resolution. 2. Bronchiectasis. Electronically signed by: Galileo Mejia DO (09/27/2021 1:10 AM) [facility]
[2021-09-27 06:58] LABS: INFLUENZA A PATIENT NEGATIVE (NEGATIVE); INFLUENZA B PATIENT NEGATIVE (NEGATIVE)
--- NOTE | 2021-09-27 10:04 | PHYS DOC ---
Past History Past Medical History: Arthritis, CAD, COPD Additional Past Medical Histor: ENLARGED HEART Past Surgical History: Appendectomy, Hysterectomy Alcohol Use: Rarely Drug Use: None Adult General Chief Complaint Chief Complaint: SHORTNESS OF BREATH HPI HPI Patient is a 89 year old female who presents with syncope and dyspnea. Patient was originally seen by Dr. Soto. Refer to his chart for complete HPI and ROS Review of Systems Review of Systems Constitutional: Denies fever or chills Eyes: Denies change in visual acuity, redness, or eye pain HENT: Denies nasal congestion or sore throat Respiratory: Denies cough or shortness of breath Cardiovascular: No additional information not addressed in HPI GI: Denies abdominal pain, nausea, vomiting, bloody stools or diarrhea : Denies dysuria or hematuria Musculoskeletal: Denies back pain or joint pain Integument: Denies rash or skin lesions Neurologic: see HPI Endocrine: Denies polyuria or polydipsia All other systems were reviewed and found to be within normal limits, except as documented in this note. Current Medications Current Medications Current Medications Medications (Trade) Dose Ordered Sig/Izabel Start Time Stop Time Status Last Admin Dose Admin Acetaminophen (Tylenol) 1,000 mg 1X ONCE 09/26/21 21:15 09/26/21 21:16 DC 09/26/21 21:05 1,000 MG Albuterol/ Ipratropium (Duoneb) 3 ml 1X ONCE 09/26/21 21:30 09/26/21 21:31 DC 09/26/21 22:02 3 ML Aspirin (Aspirin Chewable) 324 mg 1X ONCE 09/26/21 21:45 09/26/21 21:47 DC 09/26/21 21:45 324 MG Dexamethasone (Decadron) 10 mg 1X ONCE 09/26/21 21:30 09/26/21 21:31 DC 09/26/21 21:30 10 MG Iohexol (Omnipaque 350 Mg/ml) 100 ml 1X ONCE 09/26/21 22:45 09/26/21 22:46 DC 09/26/21 00:21 75 ML Levofloxacin/ Dextrose 100 ml @ 100 mls/hr 1X ONCE 09/26/21 21:30 09/26/21 22:29 DC 09/26/21 21:30 100 MLS/HR Allergies Allergies Allergies Coded Allergies Type Severity Reaction Last Updated Verified Penicillins Allergy Intermediate 09/22/21 Yes Sulfa (Sulfonamide Antibiotics) Allergy Intermediate 09/22/21 Yes Physical Exam Physical Exam Constitutional: Well developed, well nourished, no acute distress, non-toxic appearance. HENT: Normocephalic, atraumatic, bilateral external ears normal, oropharynx moist Eyes: PERRLA, EOMI, conjunctiva normal, no discharge. Neck: Normal range of motion, no tenderness, supple, no stridor. Cardiovascular:Heart rate regular rhythm Lungs & Thorax: normal respiratory effort Abdomen: Bowel sounds normal, soft, no tenderness Skin: Warm, dry, no erythema Extremities: No tenderness, no cyanosis, no clubbing, ROM intact, no edema. Neurologic: Alert and oriented X 3 Psychologic: Affect normal Current Patient Data Vital Signs Vital Signs Date Time Temp Pulse Resp B/P (MAP) Pulse Ox O2 Delivery O2 Flow Rate FiO2 09/27/21 06:24 68 20 97/68 (78) 100 Nasal Cannula 4.0 09/27/21 02:47 97.8 Lab Results Laboratory Tests Test 09/26/21 21:00 09/27/21 06:00 White Blood Count 15.7 x10^3/uL (4.0-11.0) H Red Blood Count 4.10 x10^6/uL (3.50-5.40) Hemoglobin 11.6 g/dL (12.0-15.5) L Hematocrit 36.4 % (36.0-47.0) Mean Corpuscular Volume 89 fL (79-100) Mean Corpuscular Hemoglobin 28 pg (25-35) Mean Corpuscular Hemoglobin Concent 32 g/dL (31-37) Red Cell Distribution Width 15.0 % (11.5-14.5) H Platelet Count 238 x10^3/uL (140-400) Neutrophils (%) (Auto) 80 % (31-73) H Lymphocytes (%) (Auto) 11 % (24-48) L Monocytes (%) (Auto) 9 % (0-9) Eosinophils (%) (Auto) 0 % (0-3) Basophils (%) (Auto) 0 % (0-3) Neutrophils # (Auto) 12.6 x10^3uL (1.8-7.7) H Lymphocytes # (Auto) 1.7 x10^3/uL (1.0-4.8) Monocytes # (Auto) 1.4 x10^3/uL (0.0-1.1) H Eosinophils # (Auto) 0.0 x10^3/uL (0.0-0.7) Basophils # (Auto) 0.1 x10^3/uL (0.0-0.2) Segmented Neutrophils % 77 % (35-66) H Lymphocytes % 15 % (24-48) L Monocytes % 8 % (0-10) Platelet Estimate Adequate (ADEQUATE) Prothrombin Time 11.4 SEC (9.4-11.4) Prothrombin Time INR 1.1 (0.9-1.1) Activated Partial Thromboplast Time 23 SEC (23-33) D-Dimer (Helen) > 19.00 mg/L (0.00-0.50) H Sodium Level 143 mmol/L (136-145) Potassium Level 4.3 mmol/L (3.5-5.1) Chloride Level 105 mmol/L (98-107) Carbon Dioxide Level 31 mmol/L (21-32) Anion Gap 7 (6-14) Blood Urea Nitrogen 14 mg/dL (7-20) Creatinine 0.9 mg/dL (0.6-1.0) Estimated GFR (Cockcroft-Gault) 71.3 BUN/Creatinine Ratio 16 (6-20) Glucose Level 103 mg/dL (70-99) H Calcium Level 8.6 mg/dL (8.5-10.1) Magnesium Level 2.7 mg/dL (1.8-2.4) H Total Bilirubin 0.5 mg/dL (0.2-1.0) Aspartate Amino Transferase (AST) 57 U/L (15-37) H Alanine Aminotransferase (ALT) 42 U/L (14-59) Alkaline Phosphatase 63 U/L (46-116) Troponin I High Sensitivity 94 ng/L (4-50) H Total Protein 7.6 g/dL (6.4-8.2) Albumin 2.7 g/dL (3.4-5.0) L Albumin/Globulin Ratio 0.6 (1.0-1.7) L Influenza Type A (Rapid) Negative (NEGATIVE) Influenza Type B (Rapid) Negative (NEGATIVE) SARS-CoV-2 Antigen (Rapid) Negative (NEGATIVE) EKG EKG [] Radiology/Procedures Radiology/Procedures [] Heart Score C/O Chest Pain: No Risk Factors: Risk Factors: DM, Current or recent (<one month) smoker, HTN, HLP, family history of CAD, obesity. Risk Scores: Risk Factors: DM, Current or recent (<one month) smoker, HTN, HLP, family history of CAD, obesity. Course & Med Decision Making Course & Med Decision Making Pertinent Labs and Imaging studies reviewed. (See chart for details) 07:00: I assumed care of this patient at shift turnover from Dr. Soto. She is currently sleeping labs and imaging pending. 10:00: All results are reviewed. Patient does have elevated white count although this was for many hours earlier. She is currently in no distress and resting comfortably. She is well-appearing on the gurney. She was given Lev aquin overnight. Imaging does reveal worsening pneumonia. She is COVID- negative. 11:00: Discussed with Dr. Sellers who will primarily admit the patient. She is agreeable to this plan of care and she prefers admission. She was ambulated about the department and walking oxygen saturation lowered to 75%. She became dyspneic. She is not normally use oxygen at home. Stable for admission and will be waiting for a bed at the main hospital in the emergency department. Dragon Disclaimer Dragon Disclaimer This electronic medical record was generated, in whole or in part, using a voice recognition dictation system. Departure Departure: Impression: Primary Impression: COPD exacerbation Additional Impressions: Hypoxia Pneumonia Condition: STABLE Referrals: RODRI MINA MD (PCP) Problem Qualifiers JD RASHEED DO Sep 27, 2021 10:04
[2021-09-27] MEDS ORDERED: ONDANSETRON PF 4 MG/2 ML VIAL. IVP PRN (11:00)
[2021-09-27 13:51] LABS: BACTERIA,URINE 0 /HPF (0-FEW); BILIRUBIN,URINE NEG (NEG); CLARITY,URINE CLEAR; COLOR,URINE YELLOW; GLUCOSE,URINE NEG (NEG); NITRITE,URINE NEG (NEG); RBC,URINE OCC /HPF (0-2); SQUAMOUS EPITHELIAL CELL,UR MANY /LPF; UROBILINOGEN,URINE 0.2 mg/dL (0.2 mg/dL); WBC,URINE 0 /HPF (0-4)
[2021-09-27 15:49] VITALS: BP 143/87
--- NOTE | 2021-09-27 16:55 | NUR ---
ADMISSION NOTE PT ARRIVED VIA EMS AND AMBULATED TO BED. PT ON 4L OF O2 WITH A SAT OF 93%. PT A&OX4. TELE APPLIED. IV FLUSHED. ASSESSMENT COMPLETE. PT STATES SHE IS READY TO REST IN BED. PT STATES: "I WAS JUST HERE TUESDAY AND I WAS NOT READY TO GO HOME. WHEN I GOT HOME I DID NOT TAKE MY MEDICINE BECAUSE I DIDN'T FEEL LIKE IT SO I STARTED FEELING BAD AGAIN." PT IS NOW IN BED RESTING ASKING WHEN SHE WILL SEE DR MINA. ALL NEEDS MET AT THIS TIME. WILL CONTINUE TO MONITOR.
[2021-09-27 19:00] VITALS: BP 125/72
[2021-09-27] MEDS ORDERED: HYDROcodone/APAP 7.5/325MG 1 TAB TABLET PO PRN (19:00)
[2021-09-27] MEDS ORDERED: ALBUTEROL SULFATE 2.5 MG/3 ML NEBU. NEB PRN (19:00)
[2021-09-27] MEDS ORDERED: CALCIUM CARBONATE 500 MG TAB.CHEW PO PRN (19:30)
[2021-09-27] MEDS ORDERED: FLUTICASONE 50MCG/NASAL SPRAY 16GM BOTTLE. NS PRN (19:45)
[2021-09-27] MEDS: ENOXAPARIN 30 MG/0.3 ML SYRINGE. SQ SCH (20:48)
[2021-09-27] MEDS: LACTOBACILLUS RHAMNOSUS GG 1 CAPSULE. PO SCH (20:48)
[2021-09-27] MEDS: MIRTAZAPINE 15 MG TABLET PO SCH (20:48)
[2021-09-27] MEDS ORDERED: NON FORMULARY ITEM (Budesonide/Formoterol Fumarate (Symbicort 160-4.5 Mcg Inhaler) 2 PUFF) IH SCH (21:00)
[2021-09-27] MEDS: BUDESONIDE 0.5 MG/2 ML NEBU NEB SCH (21:43)
[2021-09-27] MEDS: IPRATRPIUM/ALBUTEROL 0.5/2.5MG 3 ML NEBU. NEB SCH (21:43)
[2021-09-28 05:23] VITALS: BP 127/80
[2021-09-28] MEDS: IPRATRPIUM/ALBUTEROL 0.5/2.5MG 3 ML NEBU. NEB SCH ×4 (05:26→21:37)
--- NOTE | 2021-09-28 05:27 | NUR ---
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
[2021-09-28 06:15] LABS: BASO # 0.1 x10^3/uL (0.0-0.2); BASO % 1 % (0-3); EOS % 0 % (0-3); HEMOGLOBIN 11.4 g/dL (12.0-15.5); LYMPH # 1.8 x10^3/uL (1.0-4.8); LYMPH % 12 % (24-48); MEAN CORPUSCULAR HEMOGLOBIN 28 pg (25-35); MEAN CORPUSCULAR HGB CONC 32 g/dL (31-37); MEAN CORPUSCULAR VOLUME 89 fL (79-100); MONO # 1.3 x10^3/uL (0.0-1.1); MONO % 9 % (0-9); NEUT # 11.2 x10^3uL (1.8-7.7); NEUT % 78 % (31-73); PLATELET COUNT 235 x10^3/uL (140-400); RED BLOOD COUNT 4.06 x10^6/uL (3.50-5.40); RED CELL DISTRIBUTION WIDTH 14.5 % (11.5-14.5); WHITE BLOOD COUNT 14.4 x10^3/uL (4.0-11.0)
[2021-09-28 06:25] LABS: CREATININE 0.7 mg/dL (0.6-1.0); GFR 95.3; POTASSIUM 3.4 mmol/L (3.5-5.1)
[2021-09-28] MEDS: BUDESONIDE 0.5 MG/2 ML NEBU NEB SCH ×2 (08:00→21:37)
[2021-09-28] MEDS: MONTELUKAST 10 MG TABLET. PO SCH (08:31)
[2021-09-28] MEDS: LACTOBACILLUS RHAMNOSUS GG 1 CAPSULE. PO SCH ×2 (08:31→20:51)
[2021-09-28] MEDS: PARoxetine 20 MG TABLET PO SCH (08:32)
[2021-09-28] MEDS: CETIRIZINE HCL 10 MG TABLET PO SCH (08:32)
[2021-09-28] MEDS: METOPROLOL SUCC 24HR ER 50 MG TAB.ER.24H. PO SCH (08:33)
[2021-09-28] MEDS: ARIPiprazole 2 MG TABLET PO SCH (08:44)
--- NOTE | 2021-09-28 10:22 | NUR ---
PT MEDICATIONS PASSED AND ASSESSMENT COMPLETE. PT STATES SHE IS IS NO PAIN. PATIENT WORKED WITH PT AND STATED PT IS MUCH WEAKER THAN LAST TIME SHE WAS HERE. PT IS IN BED WITH BED LOCKED AND CALL LIGHT WITHIN REACH. WILL CONTINUE TO MONITOR. ALL NEEDS MET AT THIS TIME.
[2021-09-28 11:04] VITALS: BP 106/62
[2021-09-28 15:23] VITALS: BP 120/75
--- NOTE | 2021-09-28 18:29 | HP ---
DATE OF SERVICE: 09/28/2021 ADMIT DATE: 09/27/2021 HISTORY OF PRESENT ILLNESS: An 89-year-old female, patient apparently was discharged here recently, but apparently did not take her home medications as well as prescribed. As a result of this, the patient became increasingly weak, apparently fell and was found by family and brought in through the Emergency Room and made further evaluation. She was admitted with pneumonia. She had not been taking the medication as well as prescribed for her, so she was admitted for syncope, change in mental status as well as noncompliance and pneumonia. PAST MEDICAL HISTORY: Unchanged from previous ones. She has had appendectomy, total abdominal hysterectomy, degenerative arthritis. She has a history of thrombocytopenia, lymphocytosis, congestive heart failure and so forth. ALLERGIES: TO PENICILLIN AND SULFA. SOCIAL HISTORY: No smoking, alcohol or drug use. She is a FULL CODE. REVIEW OF SYSTEMS: The patient denies any headaches, visual change, blurred vision, double vision. Does have shortness of breath. Does have generalized weakness. Denies headaches and so forth, but otherwise unremarkable. PHYSICAL EXAMINATION: GENERAL: This is a pleasant -Cymro female, slightly decreased mentation than she was when she was discharged. VITAL SIGNS: Blood pressure 127/80, respiratory rate 16, pulse 60, temperature 99.5. HEENT: The patient's head was atraumatic, normocephalic. Eyes: PERRLA without jaundice. The mouth and throat were normal. NECK: Supple without JVD or thyromegaly. LUNGS: Diminished throughout, poor movement of air. CARDIOVASCULAR: Regular sinus rhythm. ABDOMEN: Soft, nontender, no rebound, no guarding. Positive bowel sounds, no hepatosplenomegaly. EXTREMITIES: No clubbing, cyanosis, nor edema. NEUROLOGIC: Stable. LABORATORY DATA: White count 15, hemoglobin and hematocrit 11 and 36. Sodium and potassium 142 and 3.4. Albumin 2.7. D-dimer was greater than 19, probably from her fall. CTA of the chest demonstrated some bronchiectasis and pneumonia, but no elements of a pulmonary emboli. IMPRESSION: Syncope; change in mental status; noncompliance; pneumonia, community acquired. PLAN: Continue IV antibiotic therapy, aggressive pulmonary toilet and make further evaluation on her as indicated. NILSA/EKT DR: NILSA/isabel TID: [id number]
[2021-09-28 19:00] VITALS: BP 106/67
[2021-09-28] MEDS: MIRTAZAPINE 15 MG TABLET PO SCH (20:51)
[2021-09-28] MEDS: ENOXAPARIN 30 MG/0.3 ML SYRINGE. SQ SCH (20:52)
[2021-09-28] MEDS: AZITHROMYCIN 250 MG in IV NORMAL SALINE 250ML 250 ML IV SCH (21:55)
[2021-09-29 05:42] VITALS: BP 127/75
[2021-09-29] MEDS: IPRATRPIUM/ALBUTEROL 0.5/2.5MG 3 ML NEBU. NEB SCH ×4 (05:53→20:22)
[2021-09-29] MEDS: BUDESONIDE 0.5 MG/2 ML NEBU NEB SCH ×2 (08:00→20:22)
[2021-09-29] MEDS: ARIPiprazole 2 MG TABLET PO SCH (09:00)
[2021-09-29] MEDS: MONTELUKAST 10 MG TABLET. PO SCH (10:21)
[2021-09-29] MEDS: CETIRIZINE HCL 10 MG TABLET PO SCH (10:21)
[2021-09-29] MEDS: LACTOBACILLUS RHAMNOSUS GG 1 CAPSULE. PO SCH ×2 (10:21→20:22)
[2021-09-29] MEDS: METOPROLOL SUCC 24HR ER 50 MG TAB.ER.24H. PO SCH (10:21)
[2021-09-29] MEDS: PARoxetine 20 MG TABLET PO SCH (10:21)
[2021-09-29 11:00] VITALS: BP 124/79
--- NOTE | 2021-09-29 11:56 | NUR ---
Pt in good spirits this morning. She is compliant with whole medications, absent of disruptive behaviors on the unit. IV in R wrist flushed and locked, dressing to IV site CDI. She is able to make her needs known to staff and denies pain when asked. Plan of care continues, will pass to next shift.
[2021-09-29 15:58] VITALS: BP 106/71
[2021-09-29] MEDS: CYCLOBENZAPRINE 10 MG TABLET. PO PRN (20:22)
[2021-09-29] MEDS: MIRTAZAPINE 15 MG TABLET PO SCH (20:22)
[2021-09-29] MEDS: ENOXAPARIN 30 MG/0.3 ML SYRINGE. SQ SCH (20:22)
[2021-09-29 20:38] VITALS: BP 185/72
[2021-09-29] MEDS: AZITHROMYCIN 250 MG in IV NORMAL SALINE 250ML 250 ML IV SCH (21:06)
[2021-09-30 00:04] VITALS: BP 120/79
--- NOTE | 2021-09-30 05:43 | PN ---
DATE: 09/29/2021 SUBJECTIVE: An 89-year-old female in with multilobar pneumonia. The patient is resting fairly comfortably. Says she is making better progress, feels better today. We will continue on IV antibiotic therapy. OBJECTIVE: VITAL SIGNS: Blood pressure 110/70, respiratory rate 20, pulse 80, afebrile, ____ 94%. GENERAL: The patient is alert and oriented, cheerful. LUNGS: Diminished, but throughout rhonchi. CARDIOVASCULAR: Regular sinus rhythm. ABDOMEN: Soft, nontender. EXTREMITIES: No clubbing or edema. NEUROLOGIC: Stable. IMPRESSION: Multilobar pneumonia, noncompliance, syncope, change in mental status. PLAN: As above. Continue to make further evaluation on her as indicated per those results. NILSA/EKT/HAOI DR: NILSA/isabel TID: [id number]
[2021-09-30 06:19] VITALS: BP 116/73
[2021-09-30] MEDS: IPRATRPIUM/ALBUTEROL 0.5/2.5MG 3 ML NEBU. NEB SCH ×4 (06:43→21:53)
[2021-09-30] MEDS: ARIPiprazole 2 MG TABLET PO SCH (09:00)
[2021-09-30] MEDS: MONTELUKAST 10 MG TABLET. PO SCH (09:12)
[2021-09-30] MEDS: LACTOBACILLUS RHAMNOSUS GG 1 CAPSULE. PO SCH ×2 (09:12→19:39)
[2021-09-30] MEDS: PARoxetine 20 MG TABLET PO SCH (09:12)
[2021-09-30] MEDS: METOPROLOL SUCC 24HR ER 50 MG TAB.ER.24H. PO SCH (09:12)
[2021-09-30] MEDS: CETIRIZINE HCL 10 MG TABLET PO SCH (09:12)
[2021-09-30] MEDS: BUDESONIDE 0.5 MG/2 ML NEBU NEB SCH ×2 (09:14→21:53)
[2021-09-30 10:43] VITALS: BP 105/65
[2021-09-30 14:48] VITALS: BP 103/72
--- NOTE | 2021-09-30 16:42 | RAD ---
EXAM: Chest, 2 views. HISTORY: Pneumonia. COMPARISON: 09/26/2021 FINDINGS: 2 views of the chest are obtained. There has been slight interval increase in diffuse inter stitial infiltrate likely superimposed on chronic interstitial changes. There is no pleural effusion or pneumothorax. There is a stable enlarged cardiac silhouette. IMPRESSION: Slight interval increase in diffuse interstitial infiltrate. Electronically signed by: Kitty Bhakta MD (09/30/2021 4:39 PM) [id number]
[2021-09-30] MEDS: ENOXAPARIN 30 MG/0.3 ML SYRINGE. SQ SCH (19:39)
[2021-09-30] MEDS: MIRTAZAPINE 15 MG TABLET PO SCH (19:39)
[2021-09-30 19:41] VITALS: BP 106/70
[2021-09-30] MEDS: AZITHROMYCIN 250 MG in IV NORMAL SALINE 250ML 250 ML IV SCH (20:02)
--- NOTE | 2021-09-30 22:24 | PN ---
DATE: 09/30/2021 SUBJECTIVE: An 89-year-old female in with pneumonia multilobar resting fairly comfortably, making fairly good progress. She was increasingly weak and syncopal, but she seems to be making good progress here with her IV antibiotic therapy and respiratory therapy. X-ray is pending to see how much progress, we have made there. OBJECTIVE: VITAL SIGNS: Blood pressure 103/72, respiratory rate 16, pulse 80, afebrile, 3 liters at 92. Continue with aggressive pulmonary toilet, IV antibiotics and the like. IMPRESSION: Pneumonia, probably community-acquired, syncope, respiratory distress. PLAN: Continue to monitor her and hopefully ready for discharge her soon. CHAU DR: Abdelrahman TID: [id number]
[2021-09-30 23:37] VITALS: BP 107/70
[2021-10-01 05:50] VITALS: BP 111/72
[2021-10-01] MEDS: IPRATRPIUM/ALBUTEROL 0.5/2.5MG 3 ML NEBU. NEB SCH ×4 (06:11→19:59)
[2021-10-01 06:54] LABS: BASO % 0 % (0-3); EOS # 0.5 x10^3/uL (0.0-0.7); EOS % 4 % (0-3); HEMATOCRIT 32.2 % (36.0-47.0); HEMOGLOBIN 10.4 g/dL (12.0-15.5); LYMPH # 1.9 x10^3/uL (1.0-4.8); LYMPH % 13 % (24-48); MEAN CORPUSCULAR HEMOGLOBIN 28 pg (25-35); MEAN CORPUSCULAR HGB CONC 32 g/dL (31-37); MEAN CORPUSCULAR VOLUME 88 fL (79-100); MONO # 1.5 x10^3/uL (0.0-1.1); MONO % 11 % (0-9); NEUT # 10.3 x10^3uL (1.8-7.7); NEUT % 72 % (31-73); PLATELET COUNT 196 x10^3/uL (140-400); RED BLOOD COUNT 3.64 x10^6/uL (3.50-5.40); RED CELL DISTRIBUTION WIDTH 14.8 % (11.5-14.5); WHITE BLOOD COUNT 14.3 x10^3/uL (4.0-11.0)
[2021-10-01 07:08] LABS: CALCIUM 7.7 mg/dL (8.5-10.1); CREATININE 0.8 mg/dL (0.6-1.0); GFR 81.7
[2021-10-01] MEDS: PARoxetine 20 MG TABLET PO SCH (08:00)
[2021-10-01] MEDS: BUDESONIDE 0.5 MG/2 ML NEBU NEB SCH ×2 (08:00→19:59)
[2021-10-01] MEDS: MONTELUKAST 10 MG TABLET. PO SCH (09:00)
[2021-10-01] MEDS: ARIPiprazole 2 MG TABLET PO SCH (09:46)
[2021-10-01] MEDS: LACTOBACILLUS RHAMNOSUS GG 1 CAPSULE. PO SCH ×2 (09:47→20:22)
[2021-10-01] MEDS: METOPROLOL SUCC 24HR ER 50 MG TAB.ER.24H. PO SCH (09:47)
[2021-10-01] MEDS: CETIRIZINE HCL 10 MG TABLET PO SCH (09:48)
--- NOTE | 2021-10-01 14:40 | NUR ---
NURS NOTE PT ASSESSMENT AND MEDICATIONS PASSED. PT IS A&OX4 BUT SEEMS VERY WEAK TODAY. PT IS A TWO PERSON ASSIST NOW AND MORE LETHARGIC THROUGHOUT THE DAY. PT IS NOW ON 3L OF OXYGEN AND SLEEPS MOST OF DAY. PT HAS TO BE WOKE UP TO EAT. PT STATES SHE IS IN NO PAIN OR DISCOMFORT. ALL NEEDS MET AT THIS TIME.
[2021-10-01 16:29] VITALS: BP 109/71
[2021-10-01 19:37] VITALS: BP 99/66
[2021-10-01] MEDS: ENOXAPARIN 30 MG/0.3 ML SYRINGE. SQ SCH (20:21)
[2021-10-01] MEDS: CYCLOBENZAPRINE 10 MG TABLET. PO PRN (20:22)
[2021-10-01] MEDS: MIRTAZAPINE 15 MG TABLET PO SCH (20:22)
[2021-10-01] MEDS: AZITHROMYCIN 250 MG in IV NORMAL SALINE 250ML 250 ML IV SCH (21:13)
--- NOTE | 2021-10-01 23:20 | PN ---
SUBJECTIVE: The patient in with pneumonia, bilateral lobe. The patient is resting fairly comfortably, making fairly good progress, still has an infectious process, although markedly improved. She is feeling much better. OBJECTIVE: VITAL SIGNS: Blood pressure 110/70, respiration 18, pulse 80, afebrile, 3 liters at 97. LUNGS: Diminished, primarily in the bases, otherwise basically markedly improved. CARDIOVASCULAR: Regular sinus rhythm. IMPRESSION AND PLAN: The patient otherwise will be continued to be monitored. IV antibiotic therapy and possible transfer to a rehab facility for continued aggressive therapy for her pneumonia and respiratory failure. LISSETT DR: Abdelrahman TID: [id number]
[2021-10-02 05:40] VITALS: BP 120/82
[2021-10-02] MEDS: IPRATRPIUM/ALBUTEROL 0.5/2.5MG 3 ML NEBU. NEB SCH ×4 (05:56→21:23)
--- NOTE | 2021-10-02 05:58 | NUR ---
pt did not want this am tx.
[2021-10-02] MEDS: BUDESONIDE 0.5 MG/2 ML NEBU NEB SCH ×2 (08:00→21:23)
[2021-10-02] MEDS: LACTOBACILLUS RHAMNOSUS GG 1 CAPSULE. PO SCH ×2 (08:18→19:59)
[2021-10-02] MEDS: ARIPiprazole 2 MG TABLET PO SCH (08:18)
[2021-10-02] MEDS: PARoxetine 20 MG TABLET PO SCH (08:18)
[2021-10-02] MEDS: MONTELUKAST 10 MG TABLET. PO SCH (08:18)
[2021-10-02] MEDS: CETIRIZINE HCL 10 MG TABLET PO SCH (08:18)
[2021-10-02] MEDS: METOPROLOL SUCC 24HR ER 50 MG TAB.ER.24H. PO SCH (08:18)
[2021-10-02 09:17] LABS: BASO % 0 % (0-3); EOS # 0.3 x10^3/uL (0.0-0.7); EOS % 2 % (0-3); HEMATOCRIT 34.4 % (36.0-47.0); HEMOGLOBIN 10.8 g/dL (12.0-15.5); LYMPH # 1.6 x10^3/uL (1.0-4.8); LYMPH % 11 % (24-48); MEAN CORPUSCULAR HEMOGLOBIN 28 pg (25-35); MEAN CORPUSCULAR HGB CONC 32 g/dL (31-37); MEAN CORPUSCULAR VOLUME 89 fL (79-100); MONO # 1.5 x10^3/uL (0.0-1.1); MONO % 10 % (0-9); NEUT # 11.4 x10^3uL (1.8-7.7); NEUT % 77 % (31-73); PLATELET COUNT 241 x10^3/uL (140-400); RED BLOOD COUNT 3.86 x10^6/uL (3.50-5.40); RED CELL DISTRIBUTION WIDTH 14.7 % (11.5-14.5); WHITE BLOOD COUNT 14.9 x10^3/uL (4.0-11.0)
[2021-10-02 09:47] LABS: ALBUMIN 2.2 g/dL (3.4-5.0); ALBUMIN/GLOBULIN RATIO 0.4 (1.0-1.7); CREATININE 0.9 mg/dL (0.6-1.0); GFR 71.3; POTASSIUM 4.1 mmol/L (3.5-5.1); TOTAL BILIRUBIN 0.5 mg/dL (0.2-1.0); TOTAL PROTEIN 7.1 g/dL (6.4-8.2)
--- NOTE | 2021-10-02 14:37 | NUR ---
Nurse was called to do treatment, therapist busy in ER
[2021-10-02 15:36] LABS: BGAS PH 7.4 (7.35-7.45)
[2021-10-02 15:39] VITALS: BP 98/64
[2021-10-02 19:00] VITALS: BP 100/68
[2021-10-02] MEDS: MIRTAZAPINE 15 MG TABLET PO SCH (19:59)
[2021-10-02] MEDS: AZITHROMYCIN 250 MG in IV NORMAL SALINE 250ML 250 ML IV SCH (19:59)
[2021-10-02] MEDS: ENOXAPARIN 30 MG/0.3 ML SYRINGE. SQ SCH (20:00)
[2021-10-02] MEDS: CYCLOBENZAPRINE 10 MG TABLET. PO PRN (21:23)
--- NOTE | 2021-10-03 00:42 | PN ---
SUBJECTIVE: The patient is an 89-year-old female, in with pneumonia. The patient was doing reasonably well yesterday, change in mental status today, got kind of confused and erratic. OBJECTIVE: VITAL SIGNS: Blood pressure 98/64, respiratory rate 18, pulse 90, afebrile. LUNGS: Diminished crackles in the bases. CARDIOVASCULAR: Regular sinus rhythm. ABDOMEN: Soft, nontender. IMPRESSION AND PLAN: The patient continued to be monitored carefully, make further evaluation on her and any change other than her mental status; pneumonia, probable community-acquired; syncope; respiratory distress and that of a change in mental status. We will continue to monitor her before being transferred to [address] [place] [address] [address] J[address]: Abdelrahman TID: [id number]
[2021-10-03] MEDS: IPRATRPIUM/ALBUTEROL 0.5/2.5MG 3 ML NEBU. NEB SCH ×4 (05:54→20:00)
[2021-10-03 06:21] VITALS: BP 130/80
[2021-10-03] MEDS: BUDESONIDE 0.5 MG/2 ML NEBU NEB SCH ×2 (08:00→20:00)
[2021-10-03] MEDS: PARoxetine 20 MG TABLET PO SCH (08:31)
[2021-10-03] MEDS: ARIPiprazole 2 MG TABLET PO SCH (08:31)
[2021-10-03] MEDS: LACTOBACILLUS RHAMNOSUS GG 1 CAPSULE. PO SCH ×2 (08:31→21:00)
[2021-10-03] MEDS: METOPROLOL SUCC 24HR ER 50 MG TAB.ER.24H. PO SCH (08:31)
[2021-10-03] MEDS: CETIRIZINE HCL 10 MG TABLET PO SCH (08:31)
[2021-10-03] MEDS: MONTELUKAST 10 MG TABLET. PO SCH (08:31)
[2021-10-03] MEDS: AZITHROMYCIN 250 MG in IV NORMAL SALINE 250ML 250 ML IV SCH (19:00)
[2021-10-03 20:11] VITALS: BP 92/58
[2021-10-03] MEDS: CEFDINIR 300 MG CAPSULE PO SCH (21:00)
[2021-10-03] MEDS: ENOXAPARIN 30 MG/0.3 ML SYRINGE. SQ SCH (21:00)
[2021-10-03] MEDS: AZITHROMYCIN 250 MG TABLET. PO SCH (21:00)
[2021-10-03] MEDS: MIRTAZAPINE 15 MG TABLET PO SCH (21:00)
--- NOTE | 2021-10-04 00:34 | PN ---
SUBJECTIVE: This is an 89-year-old female in with pneumonia and respiratory failure. The patient is doing somewhat better. Seems to be a little bit more alert and cognizant of where she is today as the patient may have been having some sundowners. OBJECTIVE: VITAL SIGNS: Blood pressure 130/80, respiratory rate 20, pulse 90, afebrile, 3 liters, still only at 90%. The patient continues to receive respiratory therapy treatments and will continue to make further treatments as indicated. Otherwise, we will continue on present drug regimen. LUNGS: Otherwise patient lungs were diminished throughout, but improved. CARDIOVASCULAR: Stable. ABDOMEN: Soft, nontender. IMPRESSION: Acute respiratory failure, bilateral lobe pneumonia, syncope, change in mental status. Continue to monitor her there. NILSA/CHRISTY/CEASAR DR: NILSA/isabel TID: [id number]
--- NOTE | 2021-10-04 03:10 | NUR ---
Nursing note: Pt IV painful to flush, vein appeared hard. D/c'd IV, multiple attempts to re-insert an IV failed. Called Dr. Roy who stated pt did not need IV and switched IV abx to PO. Pt slept comfortably throughout much of shift, no needs at this time.
[2021-10-04] MEDS: IPRATRPIUM/ALBUTEROL 0.5/2.5MG 3 ML NEBU. NEB SCH ×4 (08:49→21:15)
[2021-10-04] MEDS: CETIRIZINE HCL 10 MG TABLET PO SCH (08:49)
[2021-10-04] MEDS: BUDESONIDE 0.5 MG/2 ML NEBU NEB SCH ×3 (08:49→21:15)
[2021-10-04] MEDS: PARoxetine 20 MG TABLET PO SCH (08:50)
[2021-10-04] MEDS: CEFDINIR 300 MG CAPSULE PO SCH ×2 (08:50→21:14)
[2021-10-04] MEDS: ARIPiprazole 2 MG TABLET PO SCH (08:50)
[2021-10-04] MEDS: MONTELUKAST 10 MG TABLET. PO SCH (08:50)
[2021-10-04] MEDS: LACTOBACILLUS RHAMNOSUS GG 1 CAPSULE. PO SCH ×2 (08:52→21:14)
[2021-10-04] MEDS: METOPROLOL SUCC 24HR ER 50 MG TAB.ER.24H. PO SCH (09:13)
[2021-10-04 10:56] VITALS: BP 108/74
--- NOTE | 2021-10-04 18:48 | NUR ---
Nursing shift note: Patient alert and oriented x4, calm and cooperative, on oxygen supplement 3 LPM via NC at rest, vital signs stable. Patient able to walk to bathroom with walker and one assist, showered. Patient stated "I feel good today." Will continue to monitor.
[2021-10-04 19:30] VITALS: BP 127/74
[2021-10-04] MEDS: CYCLOBENZAPRINE 10 MG TABLET. PO PRN (21:14)
[2021-10-04] MEDS: MIRTAZAPINE 15 MG TABLET PO SCH (21:14)
[2021-10-04] MEDS: AZITHROMYCIN 250 MG TABLET. PO SCH (21:14)
[2021-10-04] MEDS: ENOXAPARIN 30 MG/0.3 ML SYRINGE. SQ SCH (21:15)
--- NOTE | 2021-10-04 22:08 | PN ---
SUBJECTIVE: An 89-year-old female in with pneumonia, exacerbation of chronic obstructive pulmonary disease and respiratory failure. The patient is doing reasonably well, still requiring 3 liters at 91. Blood pressure is 110/70, respiratory rate 20, pulse 80, afebrile, basically stable. Had a switch over to oral medications, IV came out, refused to get another IV, will be transferred to rehab in the morning. OBJECTIVE: GENERAL: Otherwise, the patient is alert and oriented. LUNGS: Diminished, but basically clear. CARDIOVASCULAR: Regular sinus rhythm. ABDOMEN: Soft, nontender. IMPRESSION: Pneumonia, community-acquired, syncope, respiratory distress, and that of change in mental status. PLAN: Continue to monitor the patient and hopefully ready for discharge in the a.m. LISSETT DR: Abdelrahman TID: [id number]
[2021-10-05] MEDS: IPRATRPIUM/ALBUTEROL 0.5/2.5MG 3 ML NEBU. NEB SCH ×2 (05:57→12:00)
[2021-10-05 06:41] VITALS: BP 126/70
[2021-10-05] MEDS: LACTOBACILLUS RHAMNOSUS GG 1 CAPSULE. PO SCH (08:33)
[2021-10-05] MEDS: CEFDINIR 300 MG CAPSULE PO SCH (08:33)
[2021-10-05] MEDS: MONTELUKAST 10 MG TABLET. PO SCH (08:33)
[2021-10-05] MEDS: CETIRIZINE HCL 10 MG TABLET PO SCH (08:33)
[2021-10-05] MEDS: PARoxetine 20 MG TABLET PO SCH (08:33)
[2021-10-05] MEDS: METOPROLOL SUCC 24HR ER 50 MG TAB.ER.24H. PO SCH (08:34)
[2021-10-05] MEDS: BUDESONIDE 0.5 MG/2 ML NEBU NEB SCH (08:38)
[2021-10-05] MEDS: ARIPiprazole 2 MG TABLET PO SCH (08:38)
--- NOTE | 2021-10-05 09:05 | DISCH ---
DISCHARGE ORDERS DISCHARGE DATE: Oct 05, 2021 FINAL DIAGNOSIS Acute respiratory failure Bilateral pneumonia altered mental status CONDITION AT DISCHARGE: Stable Code Status: Full SNF STAY <30 DAYS: Yes HOSPICE: No HOSPICE EVALUATE & TREAT: No ADMIT TO LTAC: No POST DISCHARGE ORDERS: ACTIVITY ORDERS: Activity as tolerated WEIGHT BEARING STATUS: No restrictions DIET AFTER DISCHARGE: Cardiac TREATMENT/EQUIPMENT ORDERS: ADAPTIVE EQUIPMENT NEEDED: None RESPIRATORY EQUIPMENT: Oxygen DISCHARGE MEDICATIONS: Home Meds Active Scripts Levofloxacin (LEVOFLOXACIN) 250 Mg Tablet, 250 MG PO DAILY for infection, #3 TAB Prov:RODRI MINA MD 09/25/21 Methylprednisolone (MEDROL) 4 Mg Tab.ds.pk, 1 PKG PO UD for inflammation, #1 PKG Prov:RODRI MINA MD 09/25/21 Lactobacillus Rhamnosus Gg (CULTURELLE) 1 Each Cap.sprink, 1 CAP PO BID for probiotic for 30 Days, #60 CAP 6 Refills Prov:RODRI MINA MD 09/25/21 Albuterol Sulfate (PROAIR HFA INHALER) 8.5 Gm Hfa.aer.ad, 2.5 MG NEB PRN Q6HRS PRN for SHORTNESS OF BREATH, #1 INHALER 2 Refills Prov:RODRI MINA MD 09/25/21 Ipratropium/Albuterol Sulfate (DUONEB 0.5-3(2.5) MG/3 ML) 3 Ml Ampul.neb, 3 ML NEB RTQID for COPD/shortness of breath, #120 EACH 3 Refills Prov:RODRI MINA MD 09/25/21 Reported Medications Mirtazapine (MIRTAZAPINE) 15 Mg Tablet, 1 TAB PO HS LAST DOSE GIVEN: DATE: YESTERDAY TIME: AT BEDTIME NEXT DOSE DUE: DATE: TODAY TIME: AT BEDTIME 04/23/16 Aripiprazole (Aripiprazole) 2 Mg Tablet, 1 TAB PO DAILY LAST DOSE GIVEN: DATE: TODAY TIME: AM NEXT DOSE DUE: DATE: TOMORROW TIME: AM 04/23/16 Paroxetine Hcl (PAROXETINE HCL) 40 Mg Tablet, 1 TAB PO DAILY08 LAST DOSE GIVEN: DATE: TODAY TIME: AM NEXT DOSE DUE: DATE: TOMORROW TIME: AM 04/23/16 Hydrocodone Bit/Acetaminophen (HYDROCODONE-APAP 7.5-325 ) 1 Each Tablet, 1 TAB PO TID PRN for PAIN, TAB 0 Refills LAST DOSE GIVEN: DATE: TIME: NEXT DOSE DUE: DATE: TODAY TIME: WHEN NEEDED 07/29/15 Montelukast Sodium (MONTELUKAST SODIUM TABLET ) 10 Mg Tablet, 1 TAB PO DAILY for asthma for 0 Days, TAB 5 Refills LAST DOSE GIVEN: DATE: TODAY TIME: AM NEXT DOSE DUE: DATE: TOMORROW TIME: AM 07/29/15 Loratadine (CLARITIN) 10 Mg Tablet, 1 TAB PO DAILY for allergies for 0 Days, TAB 5 Refills LAST DOSE GIVEN: DATE: TODAY TIME: AM NEXT DOSE DUE: DATE: TOMORROW TIME: AM 07/29/15 Cyclobenzaprine Hcl (CYCLOBENZAPRINE HCL) 10 Mg Tablet, 1 TAB PO Q8HRS PRN for MUSCLE PAIN for 0 Days, TAB LAST DOSE GIVEN: DATE: TIME: NEXT DOSE DUE: DATE: TODAY TIME: WHEN NEEDED 07/29/15 Budesonide/Formoterol Fumarate (SYMBICORT 160-4.5 MCG INHALER) 10.2 Gm Hfa.aer.ad, 2 PUFF IH BID for breathing for 0 Days, GM 3 Refills LAST DOSE GIVEN: DATE: TODAY TIME: AM NEXT DOSE DUE: DATE: TODAY TIME: PM 07/29/15 Beclomethasone Dipropionate (QNASL) 8.7 Gm Hfa.aer.ad, 2 SPR NS DAILY PRN for CONGESTION for 0 Days, GM 3 Refills LAST DOSE GIVEN: DATE: TIME: NEXT DOSE DUE: DATE: TODAY TIME: WHEN NEEDED 07/29/15 Calcium Carbonate (TUMS ULTRA) 400 Mg Tab.chew, 400 MG PO TID PRN for indigestion, TAB.CHEW LAST DOSE GIVEN: DATE: TIME: NEXT DOSE DUE: DATE: TODAY TIME: WHEN NEEDED 07/29/15 Metoprolol Succinate (METOPROLOL SUCCINATE ( XL )) 50 Mg Tab.er.24h, 1 TAB PO DAILY for htn for 0 Days, TAB 5 Refills LAST DOSE GIVEN: DATE: TODAY TIME: AM NEXT DOSE DUE: DATE: TOMORROW TIME: AM 07/29/15 RODRI MINA MD Oct 05, 2021 09:05
[2021-10-05 11:45] VITALS: BP 97/66
--- NOTE | 2021-10-05 11:58 | NUR ---
NURS NOTE PT IS A&OX4 IN BED RESTING THIS MORNING. MEDS PASSED, ASSESSMENT DONE. PT STATES SHE IS NOT IN ANY PAIN AND READY TO LEAVE TO GO TO REHAB. PT IS AWAITING DOCTOR ROUNDS.
[2021-10-05 15:35] VITALS: BP 102/67
--- NOTE | 2021-10-05 16:53 | NUR ---
DISCHARGE NOTE PT LEFT VIA EMS TO [facility] WITH BELONGINGS ON STRETCHER, CELL PHONE IN HAND, GLASSES ON. REPORT CALLED. PT ON 3L NASAL CANNULA A&OX4.
--- NOTE | 2021-10-19 20:30 | DS ---
HOSPITAL SUMMARY: An 89-year-old female was discharged. She did not take her medications, became increasingly confused, fell down. The patient was admitted for pneumonia. The patient had been prescribed antibiotic therapy, but she did not take anymore for her breathing treatments. She became lightheaded and fell. The patient was admitted. She was placed on IV antibiotic therapy and received physical and occupational therapy for her situation there. The patient made relatively good progress. Her hemoglobin remained basically stable at 10.8 and 34. White count was elevated due to steroids. The patient's albumin low at 2.2. The patient's COVID was negative. Urine was negative. The patient did have an elevated D-dimer from her falling. A CTA showed severe multifocal regional ground glass pneumonia as noted. The patient did have a followup, which did look improved. The patient was discharged this time to a nursing facility where she can receive more attention to her medical needs, [facility], so that she did not get through this element of noncompliance. IMPRESSION: Syncope, noncompliance of medications, generalized weakness, mild dementia, Alzheimer type, severe protein malnutrition, generalized deconditioning. The patient will be discharged home, followed up as an outpatient. LEIGHANN DR: Abdelrahman TID: [id number]
== END 2021-10-05 16:55 | DRG 871 ==
LOC: ER 20:00 → ER HOLD 09-27 11:00 → 1 SOUTH 09-27 14:22
PROVIDERS: ADMIT Family Medicine; ATTEND Family Medicine
DX: A41.9 Sepsis, unspecified organism (principal); J96.01 Acute respiratory failure with hypoxia; E43 Unspecified severe protein-calorie malnutrition; G93.41 Metabolic encephalopathy; J18.9 Pneumonia, unspecified organism; J44.1 Chronic obstructive pulmonary disease with (acute) exacerbation; J44.0 Chronic obstructive pulmonary disease with (acute) lower respiratory infection; I25.10 Atherosclerotic heart disease of native coronary artery without angina pectoris; I50.9 Heart failure, unspecified; Z90.49 Acquired absence of other specified parts of digestive tract; Z90.710 Acquired absence of both cervix and uterus; Z91.19 Patient's noncompliance with other medical treatment and regimen; D69.6 Thrombocytopenia, unspecified; M19.90 Unspecified osteoarthritis, unspecified site; Z20.822 Contact with and (suspected) exposure to COVID-19; F02.80 Dementia in other diseases classified elsewhere, unspecified severity, without behavioral disturbance, psychotic disturbance, mood disturbance, and anxiety; G30.9 Alzheimer's disease, unspecified; Z91.14 Patient's other noncompliance with medication regimen; Z68.22 Body mass index [BMI] 22.0-22.9, adult
CPT/HCPCS: 36415; 71045; 71046; 71275; 80048; 80053; 81001; 82803; 83735; 84484; 85007; 85025; 85379; 85610; 85730; 87428; 93005; 94640; 96365; 96366; J0456; J0696; J1650; J1956; J7050; J8540; Q9967; U0003; 97110; 97116; 97530; 97535; 99285-25